=== PATIENT | female | born 1955 | race Caucasian/White ===

== ENCOUNTER → 2019-02-12 08:20 | Outpatient (BNVA) | payer MEDICAID, SELFPAY | PROVIDERS: Family Provider Family Medicine; PCP Family Medicine; Visit Provider Social Worker | DX: F33.2 Major depressive disorder, recurrent severe without psychotic features (principal); F43.12 Post-traumatic stress disorder, chronic; F41.1 Generalized anxiety disorder; F60.3 Borderline personality disorder; F90.0 Attention-deficit hyperactivity disorder, predominantly inattentive type | CPT/HCPCS: 90834 ==

== ENCOUNTER → 2019-02-21 07:48 | Outpatient (BNVA) | payer MEDICAID, SELFPAY | PROVIDERS: Family Provider Family Medicine; PCP Family Medicine; Visit Provider Nurse Practitioner Psychiatric/Mental Health | DX: F33.2 Major depressive disorder, recurrent severe without psychotic features (principal); F41.1 Generalized anxiety disorder; F43.12 Post-traumatic stress disorder, chronic; F50.81 Binge eating disorder; F60.3 Borderline personality disorder; F17.210 Nicotine dependence, cigarettes, uncomplicated | CPT/HCPCS: 99213 ==

== ENCOUNTER → 2019-02-26 07:44 | Outpatient (BNVA) | payer MEDICAID, SELFPAY | PROVIDERS: Family Provider Family Medicine; PCP Family Medicine; Visit Provider Social Worker | DX: F33.2 Major depressive disorder, recurrent severe without psychotic features (principal); F43.12 Post-traumatic stress disorder, chronic; F41.1 Generalized anxiety disorder; F60.3 Borderline personality disorder; F90.0 Attention-deficit hyperactivity disorder, predominantly inattentive type | CPT/HCPCS: 90834 ==

== ENCOUNTER → 2019-03-17 07:46 | Outpatient (BNVA) | payer MEDICAID, SELFPAY | PROVIDERS: Family Provider Family Medicine; PCP Family Medicine; Visit Provider Social Worker | DX: F33.2 Major depressive disorder, recurrent severe without psychotic features (principal); F43.12 Post-traumatic stress disorder, chronic; F41.1 Generalized anxiety disorder; F60.3 Borderline personality disorder; F90.0 Attention-deficit hyperactivity disorder, predominantly inattentive type | CPT/HCPCS: 90834 ==

== ENCOUNTER → 2019-04-14 08:04 | Outpatient (BNVA) | payer MEDICAID, SELFPAY | PROVIDERS: Family Provider Family Medicine; PCP Nurse Practitioner; Visit Provider Social Worker | DX: F43.12 Post-traumatic stress disorder, chronic (principal); F60.3 Borderline personality disorder; F33.2 Major depressive disorder, recurrent severe without psychotic features; F41.1 Generalized anxiety disorder; F90.0 Attention-deficit hyperactivity disorder, predominantly inattentive type | CPT/HCPCS: 90834 ==

== ENCOUNTER → 2019-04-16 12:23 | Outpatient (BNVA) | payer MEDICAID, SELFPAY | PROVIDERS: Family Provider Family Medicine; PCP Nurse Practitioner; Visit Provider Anesthesiology Pain Medicine | DX: M47.814 Spondylosis without myelopathy or radiculopathy, thoracic region (principal); F17.210 Nicotine dependence, cigarettes, uncomplicated | CPT/HCPCS: 64633; 64634; 77003; J1030; J2001 ==

== ENCOUNTER → 2019-05-05 10:20 | Outpatient (BNVA) | payer MEDICAID, SELFPAY | PROVIDERS: Family Provider Family Medicine; PCP Nurse Practitioner; Visit Provider Social Worker | DX: F43.12 Post-traumatic stress disorder, chronic (principal); F60.3 Borderline personality disorder; F41.1 Generalized anxiety disorder; F33.2 Major depressive disorder, recurrent severe without psychotic features; F90.0 Attention-deficit hyperactivity disorder, predominantly inattentive type | CPT/HCPCS: 90834 ==

== ENCOUNTER → 2019-05-19 09:10 | Outpatient (BNVA) | payer MEDICAID, SELFPAY | PROVIDERS: Family Provider Family Medicine; PCP Nurse Practitioner; Visit Provider Social Worker | DX: F43.12 Post-traumatic stress disorder, chronic (principal); F60.3 Borderline personality disorder; F41.1 Generalized anxiety disorder; F33.2 Major depressive disorder, recurrent severe without psychotic features | CPT/HCPCS: 90834 ==

== ENCOUNTER → 2019-05-21 09:30 | Outpatient (BNVA) | payer MEDICAID, SELFPAY | PROVIDERS: Family Provider Family Medicine; PCP Nurse Practitioner; Visit Provider Nurse Practitioner Psychiatric/Mental Health | DX: F33.2 Major depressive disorder, recurrent severe without psychotic features (principal); F41.1 Generalized anxiety disorder; F43.12 Post-traumatic stress disorder, chronic; F50.81 Binge eating disorder; F60.3 Borderline personality disorder; F17.210 Nicotine dependence, cigarettes, uncomplicated | CPT/HCPCS: 99214 ==

== ENCOUNTER 2019-05-22 12:40 | Outpatient (CLI) | payer MEDICAID, SELFPAY ==
--- NOTE | 2019-05-22 14:30 | XR_ITS ---
WS: [id number] LATERAL CERVICAL SPINE: 3 view. Lateral radiographs are performed in upright neutral, flexion and extension to the patient's toleranc e. HISTORY: Neck pain COMPARISON: 01/05/2017 Straightening of the normal cervical lordosis. Less than 2 mm anterolisthesis of C3. No instability. C4 retrolisthesis by 2.3 mm. No increase in size of the retrolisthesis during flexion or extension. A dvanced degenerative disc disease at C4-5 with mild at C5-6. No fracture. XR/XR cervical spine fl/ex [id number] IMPRESSION: 1. No cervical spine instability demonstrated. 2. C4 retrolisthesis by 2.3 mm. 3. Advanced degenerative disc disease at C4-5.
--- NOTE | 2019-05-22 14:30 | XR_ITS ---
WS: [id number] THORACIC SPINE TECHNIQUE: AP and lateral views are performed. HISTORY: Thoracic back pain COMPARISON: 07/11/2016 Mild LEFT convex curvature upper thoracic spine. Moderate increase in thoracic kyphosis. Disc space n arrowing and small endplate osteophytes at all levels. No fracture. Pedicles are all identified. XR/XR thoracic spine 3V* [id number] IMPRESSION: 1. Moderate spondylosis thoracic spine. Mild progression of spondylitic change s since 07/11/2016. 2. No fracture.
--- NOTE | 2019-05-22 14:59 | MR_ITS ---
WS: [id number] MRI CERVICAL SPINE NONCONTRAST TECHNIQUE: Sagittal T1, T2 and STIR imaging. Axial T2, gradient, and fiesta imaging. CLINICAL INFORMATION: Cervical disc disease COMPARISON: MRI December 05, 2016 FINDINGS: Straightening of the normal cervical lordosis. No high-grade central canal stenosis. Cord signal is n ormal. C2-C3: Asymmetric moderate to advanced left facet arthropathy. Moderate left foraminal narrowing. Spi nal canal and right foramen are patent. C3-C4: Tiny central disc osteophyte protrusion. Mild central canal stenosis. Moderate right foraminal narrowing. Moderate facet arthropathy. C4-C5: Disc osteophyte complex with endplate ridging. Mild central canal stenosis. Left eccentric ost eophytic ridging with Moderate bilateral bony foraminal narrowing left greater than right. Mild facet arthropathy. C5-C6: Disc osteophyte complex with endplate ridging. Mild central canal stenosis. Moderate right and mild left foraminal narrowing. Mild facet arthropathy. C6-C7: Disc osteophyte complex eccentric to the left. Mild/moderate left and no significant right for aminal narrowing. Spinal canal is patent. C7-T1: Normal. Visualized brain stem structures: Normal. Prevertebral soft tissues: Normal. MR/MR cervical spin wo con* [id number] IMPRESSION: 1. Straightening of the normal cervical lordosis. Cord signal is normal. 2. Mild central canal stenosis due to disc osteophyte complexes C3-C4, C4-C5 a nd C5-C6. 3. Multilevel moderate to severe bony foraminal narrowing worse at right C3-C4 , left C4-5, and right C5-C6. 4. Asymmetric advanced facet arthropathy left C2-3. 5. Overall no significant changes since 2016
--- NOTE | 2019-05-22 14:59 | MR_ITS ---
WS: [id number] MRI THORACIC SPINE WITHOUT CONTRAST TECHNIQUE: Sagittal T1, T2 and STIR imaging. Axial T2 imaging. Noncontrast imaging obtained. CLINICAL INFORMATION: Thoracic back pain COMPARISON: None. FINDINGS: Mild thoracic curve. Moderate thoracic kyphosis. No acute compression fractures. Cord signal is syed l. Moderate spondylitic changes throughout the thoracic spine. Mild chronic anterior wedging at T4-T7 with endplate degenerative changes. Incidental hemangioma T12. T1-2: Mild LEFT facet arthropathy. Spinal canal and foramen are patent. T2-3: Normal. T3-4: Normal. T4-5: Normal. T5-6: Normal. T6-7: Mild disc osteophyte complex. Spinal canal and foramen are patent. T7-8: Mild disc osteophyte ridging eccentric to the left. T8-9: Mild facet and ligamentum flavum arthropathy without stenosis. T9-10: Moderate facet arthropathy and ligament flavum hypertrophy. Spinal canal and foramen are paten t. T10-11: Moderate facet arthropathy without significant stenosis. T11-12: Mild facet arthropathy without significant spinal canal or foraminal narrowing.. MR/MR thoracic spin wo con* [id number] IMPRESSION: 1. Moderate thoracic kyphosis. No acute compression fractures. 2. Cord signal is normal. 3. No significant central canal stenosis. 4. Mild chronic anterior wedging at T4-T7 with endplate degenerative changes u nchanged. 5. Incidental hemangioma T12 vertebral body. 6. Moderate facet arthropathy lower thoracic spine. 7. No significant interval changes since 2017
== END 2019-05-22 12:41 | disposition home or self-care (01) ==
LOC: RADWPI 12:44
PROVIDERS: Family Provider Family Medicine; PCP Nurse Practitioner; Visit Provider Licensed Practical Nurse
DX: M54.6 Pain in thoracic spine (principal); M50.020 Cervical disc disorder with myelopathy, mid-cervical region, unspecified level; M40.294 Other kyphosis, thoracic region; D18.09 Hemangioma of other sites; M47.814 Spondylosis without myelopathy or radiculopathy, thoracic region; M48.02 Spinal stenosis, cervical region; M25.78 Osteophyte, vertebrae; M47.812 Spondylosis without myelopathy or radiculopathy, cervical region; M50.321 Other cervical disc degeneration at C4-C5 level
CPT/HCPCS: 72040; 72072; 72141; 72146

== ENCOUNTER → 2019-06-02 08:01 | Outpatient (BNVA) | payer MEDICAID, SELFPAY | PROVIDERS: Family Provider Family Medicine; PCP Nurse Practitioner; Visit Provider Social Worker | DX: F33.2 Major depressive disorder, recurrent severe without psychotic features (principal); F43.12 Post-traumatic stress disorder, chronic; F41.1 Generalized anxiety disorder; F60.3 Borderline personality disorder; F90.0 Attention-deficit hyperactivity disorder, predominantly inattentive type | CPT/HCPCS: 90834 ==

== ENCOUNTER → 2019-06-18 07:41 | Outpatient (BNVA) | payer MEDICAID, SELFPAY | PROVIDERS: Family Provider Family Medicine; PCP Nurse Practitioner; Visit Provider Nurse Practitioner Psychiatric/Mental Health | DX: F33.2 Major depressive disorder, recurrent severe without psychotic features (principal); F41.1 Generalized anxiety disorder; F43.12 Post-traumatic stress disorder, chronic; F50.81 Binge eating disorder; F60.3 Borderline personality disorder; F17.210 Nicotine dependence, cigarettes, uncomplicated | CPT/HCPCS: 99214 ==

== ENCOUNTER → 2019-07-16 08:15 | Outpatient (BNVA) | payer MEDICAID, SELFPAY | PROVIDERS: Family Provider Family Medicine; Visit Provider Nurse Practitioner Psychiatric/Mental Health | DX: F33.2 Major depressive disorder, recurrent severe without psychotic features (principal); F41.1 Generalized anxiety disorder; F43.12 Post-traumatic stress disorder, chronic; F50.81 Binge eating disorder; F60.3 Borderline personality disorder; F17.210 Nicotine dependence, cigarettes, uncomplicated | CPT/HCPCS: 99214 ==

== ENCOUNTER → 2019-07-21 07:53 | Outpatient (BNVA) | payer MEDICAID, SELFPAY | PROVIDERS: Family Provider Family Medicine; Visit Provider Social Worker | DX: F43.12 Post-traumatic stress disorder, chronic (principal); F33.2 Major depressive disorder, recurrent severe without psychotic features; F41.1 Generalized anxiety disorder; F60.3 Borderline personality disorder; F90.0 Attention-deficit hyperactivity disorder, predominantly inattentive type; F50.81 Binge eating disorder | CPT/HCPCS: 90834 ==

== ENCOUNTER → 2019-08-22 07:42 | Outpatient (BNVA) | payer MEDICAID, SELFPAY | PROVIDERS: Family Provider Family Medicine; Visit Provider Nurse Practitioner Psychiatric/Mental Health | DX: F33.2 Major depressive disorder, recurrent severe without psychotic features (principal); F41.1 Generalized anxiety disorder; F43.12 Post-traumatic stress disorder, chronic; F50.81 Binge eating disorder; F60.3 Borderline personality disorder; F17.210 Nicotine dependence, cigarettes, uncomplicated | CPT/HCPCS: 99214 ==

== ENCOUNTER → 2019-09-03 07:52 | Outpatient (BNVA) | payer MEDICAID, SELFPAY | PROVIDERS: Family Provider Family Medicine; Visit Provider Counselor Professional | DX: F33.2 Major depressive disorder, recurrent severe without psychotic features (principal); F41.1 Generalized anxiety disorder; F43.12 Post-traumatic stress disorder, chronic; F50.81 Binge eating disorder; F60.3 Borderline personality disorder | CPT/HCPCS: 90834 ==

== ENCOUNTER → 2019-09-11 09:32 | Outpatient (BNVA) | payer OTHER, SELFPAY | PROVIDERS: Family Provider Family Medicine; Visit Provider Dermatology | DX: F41.1 Generalized anxiety disorder (principal) | CPT/HCPCS: 80061; 83036 ==

== ENCOUNTER → 2019-09-12 08:56 | Outpatient (BNVA) | payer MEDICAID, SELFPAY | PROVIDERS: Family Provider Family Medicine; Visit Provider Anesthesiology | DX: M47.814 Spondylosis without myelopathy or radiculopathy, thoracic region (principal); M51.34 Other intervertebral disc degeneration, thoracic region; M43.12 Spondylolisthesis, cervical region; M50.020 Cervical disc disorder with myelopathy, mid-cervical region, unspecified level; M54.9 Dorsalgia, unspecified; F17.210 Nicotine dependence, cigarettes, uncomplicated; Z71.6 Tobacco abuse counseling | CPT/HCPCS: 99215 ==

== ENCOUNTER → 2019-09-23 08:11 | Outpatient (BNVA) | payer MEDICAID, SELFPAY ==
[2019-09-12 11:21] VITALS: BP 152/92; BMI 27.6
== END ==
PROVIDERS: Family Provider Family Medicine; Visit Provider Counselor Professional
DX: F33.2 Major depressive disorder, recurrent severe without psychotic features (principal); F41.1 Generalized anxiety disorder; F43.12 Post-traumatic stress disorder, chronic; F50.81 Binge eating disorder; F60.3 Borderline personality disorder; F17.210 Nicotine dependence, cigarettes, uncomplicated
CPT/HCPCS: 90832; 90834

== ENCOUNTER → 2019-10-03 08:15 | Outpatient (BNVA) | payer MEDICAID, SELFPAY ==
[2019-09-12 11:21] VITALS: BP 152/92; BMI 27.6
== END ==
PROVIDERS: Family Provider Family Medicine; Visit Provider Nurse Practitioner Psychiatric/Mental Health
DX: F33.2 Major depressive disorder, recurrent severe without psychotic features (principal); F41.1 Generalized anxiety disorder; F43.12 Post-traumatic stress disorder, chronic; F60.3 Borderline personality disorder; F17.210 Nicotine dependence, cigarettes, uncomplicated
CPT/HCPCS: 99214

== ENCOUNTER → 2019-11-12 07:41 | Outpatient (BNVA) | payer MEDICAID, SELFPAY ==
[2019-09-12 11:21] VITALS: BP 152/92; BMI 27.6
== END ==
PROVIDERS: Family Provider Family Medicine; Visit Provider Nurse Practitioner Psychiatric/Mental Health
DX: F60.3 Borderline personality disorder (principal); F33.2 Major depressive disorder, recurrent severe without psychotic features; F41.1 Generalized anxiety disorder; F43.12 Post-traumatic stress disorder, chronic; F17.210 Nicotine dependence, cigarettes, uncomplicated
CPT/HCPCS: 99213

== ENCOUNTER → 2019-12-17 07:35 | Outpatient (BNVA) | payer MEDICAID, SELFPAY ==
[2019-09-12 11:21] VITALS: BP 152/92; BMI 27.6
== END ==
PROVIDERS: Family Provider Family Medicine; Visit Provider Nurse Practitioner Psychiatric/Mental Health
DX: F60.3 Borderline personality disorder (principal); F33.2 Major depressive disorder, recurrent severe without psychotic features; F41.1 Generalized anxiety disorder; F17.210 Nicotine dependence, cigarettes, uncomplicated; F43.12 Post-traumatic stress disorder, chronic
CPT/HCPCS: 99213

== ENCOUNTER → 2020-01-23 07:50 | Outpatient (BNVA) | payer MEDICAID, SELFPAY ==
[2019-09-12 11:21] VITALS: BP 152/92; BMI 27.6
== END ==
PROVIDERS: Family Provider Family Medicine; Visit Provider Nurse Practitioner Psychiatric/Mental Health
DX: F60.3 Borderline personality disorder (principal); F33.2 Major depressive disorder, recurrent severe without psychotic features; F41.1 Generalized anxiety disorder; F17.210 Nicotine dependence, cigarettes, uncomplicated; F43.12 Post-traumatic stress disorder, chronic
CPT/HCPCS: 99214

== ENCOUNTER → 2020-02-23 08:11 | Outpatient (BNVA) | payer MEDICAID, SELFPAY ==
[2019-09-12 11:21] VITALS: BP 152/92; BMI 27.6
== END ==
PROVIDERS: Family Provider Family Medicine; Visit Provider Nurse Practitioner Psychiatric/Mental Health
DX: F60.3 Borderline personality disorder (principal); F33.2 Major depressive disorder, recurrent severe without psychotic features; F41.1 Generalized anxiety disorder; F17.210 Nicotine dependence, cigarettes, uncomplicated; F43.12 Post-traumatic stress disorder, chronic
CPT/HCPCS: 99213

== ENCOUNTER → 2020-05-26 07:08 | Outpatient (BNVA) | payer MEDICAID, SELFPAY ==
[2019-09-12 11:21] VITALS: BP 152/92; BMI 27.6
== END ==
PROVIDERS: Family Provider Family Medicine; Visit Provider Nurse Practitioner Psychiatric/Mental Health
DX: F60.3 Borderline personality disorder (principal); F33.2 Major depressive disorder, recurrent severe without psychotic features; F41.1 Generalized anxiety disorder; F17.210 Nicotine dependence, cigarettes, uncomplicated; F43.12 Post-traumatic stress disorder, chronic
CPT/HCPCS: 99214

== ENCOUNTER → 2020-06-23 07:25 | Outpatient (BNVA) | payer MEDICAID, SELFPAY ==
[2019-09-12 11:21] VITALS: BP 152/92; BMI 27.6
== END ==
PROVIDERS: Family Provider Family Medicine; Visit Provider Nurse Practitioner Psychiatric/Mental Health
DX: F60.3 Borderline personality disorder (principal); F33.2 Major depressive disorder, recurrent severe without psychotic features; F41.1 Generalized anxiety disorder; F17.210 Nicotine dependence, cigarettes, uncomplicated; F43.12 Post-traumatic stress disorder, chronic
CPT/HCPCS: 99214

== ENCOUNTER → 2020-07-26 07:23 | Outpatient (BNVA) | payer MEDICAID, SELFPAY ==
[2019-09-12 11:21] VITALS: BP 152/92; BMI 27.6
== END ==
PROVIDERS: Family Provider Family Medicine; Visit Provider Nurse Practitioner Psychiatric/Mental Health
DX: F60.3 Borderline personality disorder (principal); F17.210 Nicotine dependence, cigarettes, uncomplicated; F33.2 Major depressive disorder, recurrent severe without psychotic features; F41.1 Generalized anxiety disorder; F43.12 Post-traumatic stress disorder, chronic
CPT/HCPCS: 99214

== ENCOUNTER → 2020-09-02 10:24 | Outpatient (BNVA) | payer MEDICAID, SELFPAY ==
[2019-09-12 11:21] VITALS: BP 152/92; BMI 27.6
== END ==
PROVIDERS: Family Provider Family Medicine; Visit Provider Nurse Practitioner Psychiatric/Mental Health
DX: F60.3 Borderline personality disorder (principal); F33.2 Major depressive disorder, recurrent severe without psychotic features; F41.1 Generalized anxiety disorder; F17.210 Nicotine dependence, cigarettes, uncomplicated; F43.12 Post-traumatic stress disorder, chronic
CPT/HCPCS: 99214

== ENCOUNTER → 2020-10-14 10:05 | Outpatient (BNVA) | payer MEDICAID, SELFPAY ==
[2019-09-12 11:21] VITALS: BP 152/92; BMI 27.6
== END ==
PROVIDERS: Family Provider Family Medicine; Visit Provider Nurse Practitioner Psychiatric/Mental Health
DX: F60.3 Borderline personality disorder (principal); F33.2 Major depressive disorder, recurrent severe without psychotic features; F41.1 Generalized anxiety disorder; F17.210 Nicotine dependence, cigarettes, uncomplicated; F43.12 Post-traumatic stress disorder, chronic
CPT/HCPCS: 80061; 83036; 99214

== ENCOUNTER → 2020-11-25 09:49 | Outpatient (BNVA) | payer MEDICAID, SELFPAY ==
[2020-10-15 15:31] VITALS: BP 131/74; BMI 30.9
== END ==
PROVIDERS: Family Provider Family Medicine; Visit Provider Nurse Practitioner Psychiatric/Mental Health
DX: F60.3 Borderline personality disorder (principal); F33.2 Major depressive disorder, recurrent severe without psychotic features; F41.1 Generalized anxiety disorder; F17.210 Nicotine dependence, cigarettes, uncomplicated; F43.12 Post-traumatic stress disorder, chronic
CPT/HCPCS: 99214

== ENCOUNTER 2020-11-27 15:22 | Emergency (ER) | payer MEDICAID, SELFPAY ==
[2020-10-15 15:31] VITALS: BP 131/74; BMI 30.9
[2020-11-27 15:31] VITALS: BP 131/80; PULSE 73; RESP 18; TEMP 36.3; O2SAT 97; BMI 30.8
[2020-11-27 15:42] VITALS: BP 146/79; PULSE 72; RESP 19; TEMP 36.6; O2SAT 97
--- NOTE | 2020-11-27 16:04 | ED_ITS ---
HPI - General Adult General: Chief complaint: Skin/Abscess/Foreign Body Stated complaint: pt states bit by spider wk ago painful History of Present Illness: HPI narrative: CC: L anterior south abscess HPI: [65]yo patient w/ hx of psychiatric issues presenting to to the ED with L anterior south abscess 7 days. Pain, redness, and induration has since become swollen, inflamed, indurated, and painful and patient presents for further evaluation. []NO prior hx of abscess/cellulitis. Today, the patient denies fever/chill, nausea/vomiting, chest pain, SOB, palpitations, GI/ complaints. No hx of immunocompromised, DM, transplant, or asplenia. Onset: 7 days ago Duration: 7 days Location: L anterior south Severity: mild Review of Systems Narrative: Constitutional: No fever, no chills. HEENT: No vision changes CV: No chest pain, no palpitations PULM: No cough, no dyspnea. GI: No abdominal pain, no N/V/D. : No dysuria MSKEL: No muscle pain SKIN: +bump/4redness over the L anterior south NEURO: No headache, no focal weakness. HEME: No visible bruises PSYCH: Normal mood PFSH ED PFSH: Medical History (Updated 11/27/20 @ 16:03 by Karmen Hwang MD) Acquired spondylolisthesis of cervical vertebra Bilateral shoulder pain Borderline personality disorder Carpal tunnel syndrome, bilateral Cervical disc disorder with myelopathy of mid-cervical region Chronic post-traumatic stress disorder Encounter for long-term opiate analgesic use Generalized anxiety disorder Major depressive disorder, recurrent severe without psychotic features Nicotine dependence, cigarettes, uncomplicated Opioid contract exists Psychiatric care Psychiatric care Spondylolisthesis, cervical region Thoracic degenerative disc disease Urinary incontinence Surgical History H/O: hysterectomy History of tonsillectomy Hx of cholecystectomy Hx of tubal ligation Family History Unknown Adopted Social History (Updated 01/14/20 @ 13:18 by Mai Beaulieu RN) Smoking and tobacco status: current every day smoker cigarettes Packs smoked per day: 0.5 Years cigarettes smoked: 20 Second hand smoke exposure: No Alcohol intake: former Adopted: Yes Caregiver/support person: No Lives independently: Yes Household members: none Housing: House Marital status: Number of children: 2 Number of grandchildren: 4 Highest education level completed: GED or Equivalent service: No Current occupational status: unemployed Pets and animals: Yes Pets & animals: dog(s) Pets & animal details: [place] - female pug/dachshund mix History of recent travel: No Leisure activites: art, reading and other Leisure activities details: verónica Sexually active: No Current gender identity: Female Anju/Confucianist: [employer] of [place] Special anju needs: No Agree to transfusion: Yes Financial difficulty paying for basics: Somewhat Hard Female Reproductive History: Para: 2 Spontaneous abortions: No Physical Exam Narrative: EXAM NARRATIVE: Head: Atraumatic Eyes: PERRL, conjunctiva without injection ENT: Mucous membrane moist NECK: Supple without lymphadenopathy LUNGS: LCTAB CV: RRR ABDOMEN: Soft, nontender EXTREMITY: Normal ROM SKIN: []-sided indurated/fluctuant/erythematous lesion over the L anterior south NEURO: Awake and alert. No focal motor deficits. PSYCH: Normal mood and affect. Procedures Abscess I/D Site: lower extremity Side (if applicable): left Local Anesthetic: lidocaine 1% Amount of anesthesia used (mL): 8 Technique: incised with #11 blade Amount of fluid expressed (mL): 4 Irrigation: Yes Packing used?: plain Course Vital Signs: Vital signs: Vital Signs Temperature 97.9 F 11/27/20 15:42 Pulse Rate 72 11/27/20 15:42 Respiratory Rate 19 H 11/27/20 15:42 Blood Pressure 146/79 11/27/20 15:42 Pulse Oximetry 97 11/27/20 15:42 MDM - General Adult MDM Narrative: Medical decision making narrative: [65] yo patient presenting with exam most consistent with simple Abscess. No suspicion for overlying cellulitis. Given History, Exam, and Workup I have low suspicion for Cellulitis, Necrotizing Fasciitis, Pyomyositis, Sporotrichosis, Osteomyelitis or other emergent problems as a cause for this presentation. POCUS revealed abscess collection of the skin site. Interventions: Patient?s abscess has been incised with acceptable resolution. Please see the procedure note for information. Disposition: Discharge. Advised to follow up with a primary care physician in 48 hours. The patient given return precautions for any worsening symptoms, fever/nausea, vomiting or any new or concerning issues. Discharge Plan Discharge Patient Disposition: Home Clinical Impression: Abscess Condition: Stable Prescriptions: New cephalexin 500 mg capsule 500 mg PO BID 7 Days Qty: 14 RF: 0 No Action ibuprofen 200 mg tablet 200 mg PO DAILY PRNRF: 0 (DME) cane Device See Rx Instructions .ROUTE .MEDSUPPLY Qty: 1 RF: 0 clonazepam [Klonopin] 0.5 mg tablet 0.5 mg PO BID Qty: 60 RF: 3 sertraline [Zoloft] 100 mg tablet 100 mg PO .morning Qty: 7 RF: 0 sertraline [Zoloft] 50 mg tablet 50 mg PO .morning Qty: 7 RF: 0 bupropion HCl [Wellbutrin SR] 100 mg tablet sustained-release 12 hr 100 mg PO BID Qty: 60 RF: 1 Discharge Orders: Discharge ED (Routine); Ordered 11/27/20 Ordered By: Karmen Hwang Referrals: Pallavi Waldron DO [Primary Care Provider] - Discharge Diet: Advance as tolerated Discharge Activity: Resume usual activity Patient Instructions: Abscess (ED) Activity Restrictions/Additional Instructions: Please follow-up with your primary care provider for further evaluation of your abscess. Can start showering after 48 hours. Come back if there is any signs of worsening infection including redness, drainage, fever chills, or any new or concerning complaints. Coding Level of Care Code ED Tool Setter Apprentice for Carmelita Farias
[2020-11-27 16:12] VITALS: BP 137/74; PULSE 69; RESP 17; TEMP 36.6; O2SAT 95
== END 2020-11-27 16:17 | disposition home or self-care (01) ==
PROVIDERS: Emergency Provider Emergency Medicine; PCP Family Medicine
DX: L02.416 Cutaneous abscess of left lower limb (principal); F17.210 Nicotine dependence, cigarettes, uncomplicated
CPT/HCPCS: 10060; 99282

== ENCOUNTER → 2021-01-13 08:14 | Outpatient (BNVA) | payer MEDICAID, SELFPAY ==
[2020-10-15 15:31] VITALS: BP 131/74; BMI 30.9
== END ==
PROVIDERS: PCP Family Medicine; Visit Provider Nurse Practitioner Psychiatric/Mental Health
DX: F60.3 Borderline personality disorder (principal); F33.2 Major depressive disorder, recurrent severe without psychotic features; F41.1 Generalized anxiety disorder; F17.210 Nicotine dependence, cigarettes, uncomplicated; F43.12 Post-traumatic stress disorder, chronic
CPT/HCPCS: 99214

== ENCOUNTER → 2021-02-03 07:50 | Outpatient (BNVA) | payer MEDICAID, SELFPAY ==
[2020-10-15 15:31] VITALS: BP 131/74; BMI 30.9
== END ==
PROVIDERS: PCP Family Medicine; Visit Provider Social Worker
DX: F33.2 Major depressive disorder, recurrent severe without psychotic features (principal); F41.1 Generalized anxiety disorder; F43.12 Post-traumatic stress disorder, chronic; F60.3 Borderline personality disorder; F17.210 Nicotine dependence, cigarettes, uncomplicated
CPT/HCPCS: 90834

== ENCOUNTER → 2021-02-17 07:40 | Outpatient (BNVA) | payer MEDICAID, SELFPAY ==
[2020-10-15 15:31] VITALS: BP 131/74; BMI 30.9
== END ==
PROVIDERS: PCP Family Medicine; Visit Provider Nurse Practitioner Psychiatric/Mental Health
DX: F60.3 Borderline personality disorder (principal); F33.2 Major depressive disorder, recurrent severe without psychotic features; F17.210 Nicotine dependence, cigarettes, uncomplicated; F41.1 Generalized anxiety disorder; F43.12 Post-traumatic stress disorder, chronic
CPT/HCPCS: 99214

== ENCOUNTER → 2021-07-28 11:53 | Outpatient (BNVA) | payer MEDICAID, SELFPAY ==
[2020-10-15 15:31] VITALS: BP 131/74; BMI 30.9
== END ==
PROVIDERS: PCP Family Medicine; Visit Provider Nurse Practitioner
DX: F33.2 Major depressive disorder, recurrent severe without psychotic features (principal); F41.1 Generalized anxiety disorder; F43.12 Post-traumatic stress disorder, chronic; F60.3 Borderline personality disorder; F17.210 Nicotine dependence, cigarettes, uncomplicated
CPT/HCPCS: 99214

== ENCOUNTER → 2021-09-30 16:57 | Outpatient (BNVA) | payer MEDICAID, SELFPAY ==
[2020-10-15 15:31] VITALS: BP 131/74; BMI 30.9
== END ==
PROVIDERS: PCP Family Medicine; Visit Provider Emergency Medicine
DX: R39.9 Unspecified symptoms and signs involving the genitourinary system (principal); N30.00 Acute cystitis without hematuria
CPT/HCPCS: 81000; 87086

== ENCOUNTER 2021-10-24 14:26 | Emergency (ER) | payer MEDICAID, SELFPAY ==
[2020-10-15 15:31] VITALS: BP 131/74; BMI 30.9
[2021-10-24 14:53] VITALS: BP 159/94; PULSE 89; RESP 16; TEMP 36.4; O2SAT 94
[2021-10-24] MEDS: cephALEXin 500 mg Capsule PO (17:15)
--- NOTE | 2021-10-24 17:18 | PC.NURSE ---
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 ADP PAD AND ADHESIVE APPLIED TO COVER
--- NOTE | 2021-10-24 19:01 | ED_ITS ---
HPI - Animal Bite General: Chief Complaint: Animal Bite Stated Complaint: Spider bite on right buttock Time Seen by Provider: 10/24/21 15:08 History of Present Illness: 65 yo female patient presents to ER with spider bite to right buttocks. Pt denies any fever. Pt states this has been present for 3-4 days and has worsened. Pt denies any other complaints. Associated symptoms: Deny chills, diaphoresis, fever(s), headache(s) or syncope Review of Systems Const: Denies: fever(s), chills, body aches, change in appetite, change in weight, fatigue, malaise or diaphoresis Eyes: Denies: change in vision, blurry vision, blind spots, photophobia, eye discomfort, eye discharge, eye redness, floaters or seeing flashes ENMT: Denies: throat pain, uvular edema, enlarged tonsils, odynophagia, hoarseness, mouth pain, swelling of lips/tongue, oral sores, bleeding gums, dental pain, dry mouth, ear or mastoid pain, ear discharge, change in hearing, tinnitus, disequilibrium, nasal discharge, nasal congestion, post nasal drip or sinus pain Card: Denies: chest pain, palpitations, irregular heart rhythm, edema, swelling of feet/ankles, lightheadedness, syncope, pre-syncope, dyspnea on exertion, orthopnea, leg pain with exertion or acrocyanosis Resp: Denies: dyspnea, productive cough, non-productive cough, wheezing, stridor, pain on inspiration, change in phlegm color, hemoptysis or chest congestion GI: Denies: abdominal pain, nausea, vomiting, hematemesis, dysphagia, diarrhea, constipation, GI cramping, change in bowel habits or rectal pain : Denies: flank pain, difficulty voiding, dysuria, urinary frequency, urinary urgency, urinary hesitancy or hematuria Musc: Denies: neck pain, back pain, extremity pain, extremity swelling, joint pain, joint swelling, joint redness, joint warmth or deformity Skin/Breast: Denies: rash, pruritus, erythema, new lesions, changes in skin color or dry skin Neuro: Denies: headache(s), numbness in extremities, weakness in extremities, sensory changes, lack of coordination, difficulty walking, frequent falls, dizziness, vertigo, confusion, behavioral changes, Slurred speech present, difficulty communicating thoughts or seizure-like activity Psych: Denies: anxiety, depression, suicidal ideation or homicidal ideation Endo: Denies: polyuria, polydipsia, tired all the time, cold intolerance, excessive sweating, flushing, hot flashes or heat intolerance Gallo/Lymph: Denies: easy bruising, easy bleeding, petechiae, purpura, enlarged lymph nodes or tender lymph nodes All/Imm: Denies: urticaria, throat swelling, tongue swelling, facial swelling, acute wheezing or itchy eyes PFSH ED PFSH: Medical History Acquired spondylolisthesis of cervical vertebra Annual visit for general adult medical examination without abnormal findings Borderline personality disorder Carpal tunnel syndrome, bilateral Chronic post-traumatic stress disorder Encounter for long-term opiate analgesic use Generalized anxiety disorder Major depressive disorder, recurrent severe without psychotic features Nicotine dependence, cigarettes, uncomplicated Opioid contract exists Psychiatric care Thoracic degenerative disc disease Urinary incontinence Surgical History H/O: hysterectomy History of tonsillectomy Hx of cholecystectomy Hx of tubal ligation Spondylosis without myelopathy or radiculopathy, thoracic region Family History Unknown Adopted Social History Smoking and tobacco status: current every day smoker cigarettes Packs smoked per day: 0.5 Years cigarettes smoked: 21 Second hand smoke exposure: No Alcohol intake: former Adopted: Yes Caregiver/support person: No Lives independently: Yes Household members: none Housing: House Marital status: Number of children: 2 Number of grandchildren: 4 Highest education level completed: GED or Equivalent service: No Current occupational status: disabled Pets and animals: Yes Pets & animals: dog(s) Pets & animal details: [place] - female pug/dachshund mix History of recent travel: No Leisure activites: art, reading and other Leisure activities details: verónica Sexually active: No Current gender identity: Female Anju/Pentecostalism: Gnosticism of [place] Special anju needs: No Agree to transfusion: Yes Financial difficulty paying for basics: Somewhat Hard Female Reproductive History: Para: 2 Spontaneous abortions: No Physical Exam Const: COMMON NORMALS: no acute distress, patient oriented x3, healthy appearing, alert and well nourished GENERAL APPEARANCE: cooperative, comfortable, well kempt and well developed; not ill appearing ORIENTATION/CONSCIOUSNESS: Yes awake, Yes oriented to person, Yes oriented to place and Yes oriented to time HENMT: THROAT: no uvular edema Neck/C-Spine: COMMON NORMALS: full ROM, no lymphadenopathy, supple, no meningeal signs, no JVD and Thyroid normal GENERAL: Yes normal visual inspection and Yes trachea midline THYROID: Thyroid normal CERVICAL SPINE: Yes cervical ROM normal Lymph: LYMPHATIC: no lymphadenopathy noted and no lymphedema noted Resp: COMMON NORMALS: normal respiratory effort, No retractions, No use of accessory muscles and clear to auscultation bilaterally EFFORT & INSPECTION: Yes able to speak in complete sentences and Yes symmetric chest movement AUSCULTATION: clear to auscultation bilaterally Cardio: COMMON NORMALS: no JVD, regular rate and regular rhythm RATE: regular rate RHYTHM: regular rhythm GI: COMMON NORMALS: Normal to inspection, nondistended, normoactive bowel sounds present, Soft to palpation, non-tender, No hepatosplenomegaly present, no masses and no bruits INSPECTION: Yes normal to inspection AUSCULTATION: Yes normoactive bowel sounds PALPATION: Yes Soft to palpation and Yes No hepatosplenomegaly present PERCUSSION: normal to percussion RECTAL EXAM: deferred : COMMON NORMALS: Yes no CVA tenderness, Yes normal external appearance, Yes normal appearance of the vagina, Yes normal appearance of the cervix, Yes No adnexal tenderness and Yes no masses BLADDER/KIDNEY EXAM: Yes no CVA tenderness Back/Pelvis: COMMON NORMALS: no CVA tenderness, thoracic and lumbar spine normal to inspection, no thoracic nor lumbar tenderness and thoraco-lumbar ROM normal THORACIC SPINE/UPPER BACK: Yes normal to inspection LUMBAR SPINE/LOWER BACK: Yes normal to inspection Extremity: COMMON NORMALS: normal to inspection, full ROM and capillary refill normal GENERAL: Yes normal exam except as noted Neuro: COMMON NORMALS: patient oriented x3, CN's II-XII intact bilaterally, moves all extremities, no focal motor deficits, no sensory deficits noted and ga it normal SENSORIUM/ORIENTATION: Yes alert, Yes oriented to person, Yes oriented to place and Yes oriented to time MENINGEAL SIGNS: Yes no meningeal signs CRANIAL NERVES: Yes CN normal except as noted SPEECH: speech normal GAIT: Yes Normal gait present SENSORY EXAM: Yes extremities Psych: COMMON NORMALS: mental status grossly normal, Normal thought process present, cooperative, normal affect, speech normal, activity/motor behavior normal, denies hallucinations, denies homicidal ideation and denies suicidal ideation APPEARANCE: Yes grossly normal and Yes well kempt ATTITUDE: Yes calm ACTIVITY/MOTOR BEHAVIOR: Yes appropriate eye contact SPEECH: Yes normal speech THOUGHT PROCESS: Normal thought process present THOUGHT CONTENT: Yes Normal thought content present ATTENTION/CONCENTRATION: Yes attention grossly intact MEMORY/COGNITION: Yes memory grossly intact INSIGHT: Good insight present (Psych) JUDGEMENT: Good judgement present (Psych) Skin: COMMON NORMALS: no wounds, turgor normal, no jaundice, no petechiae and no mottling GENERAL SKIN EXAM: turgor normal Procedures Abscess I/D Site: other (right buttocks) Side (if applicable): right Local Anesthetic: lidocaine 1% Amount of anesthesia used (mL): 2 Technique: incised with #11 blade Amount of fluid expressed (mL): 10 Irrigation: Yes Packing used?: plain Complications: other (No complications) Course Vital Signs: Vital signs: Vital Signs Temperature 97.5 F L 10/24/21 14:53 Pulse Rate 89 10/24/21 14:53 Respiratory Rate 16 10/24/21 14:53 Blood Pressure 159/94 10/24/21 14:53 Pulse Oximetry 94 10/24/21 14:53 Oxygen Delivery Me thod 10/24/21 14:53 MDM - Animal Bite Medical Decision Making Patient is well appearing non toxic and in no acute distress. 65 yo female patient presents to ER with spider bite to right buttocks. Pt denies any fever. Pt states this has been present for 3-4 days and has worsened. Pt denie s any other complaints. Please see procedure note for details. Will start on antibiotics and have return in 48 hours for packing removal and wound recheck Discharge Plan Discharge Patient Disposition: Home Clinical Impression: Abscess Condition: Stable Prescriptions: New cephalexin 500 mg capsule 500 mg PO Q8H 7 Days Qty: 21 0RF No Action ibuprofen 200 mg tablet 200 mg PO DAILY PRN (DME) cane Device See Rx Instructions .ROUTE .MEDSUPPLY Qty: 1 0RF Rx Instructions: As directed clonazepam [Klonopin] 0.5 mg tablet 0.5 mg PO BID PRN (Reason: anxiety) Qty: 60 3RF Rx Instructions: Take one tablet twice per day as needed for anxiety bupropion HCl [Wellbutrin SR] 200 mg tablet sustained-release 12 hr 200 mg PO QAM Qty: 90 1RF Rx Instructions: Take one tablet every morning fluconazole [Diflucan] 150 mg tablet 150 mg PO Q3D Qty: 2 1RF phenazopyridine [Pyridium] 200 mg tablet 200 mg PO Q8H PRN (Reason: pain) Qty: 9 0RF Discharge Orders: Discharge ED (Routine); Ordered 10/24/21 Ordered By: Ayesha Gonzalez Referrals: Pallavi Waldron DO [Primary Care Provider] - Discharge Diet: Advance as tolerated Discharge Activity: Increase activity as tolerated Patient Instructions: Abscess (ED), Opioid Safety, Pain Management Activity Restrictions/Additional Instructions: Return to ER in 48 hours for packing removal and wound recheck Take medications as prescribed Coding Level of Care Code ED Office Manager Executive Assistant for Carmelita Farias
== END 2021-10-24 17:38 | disposition home or self-care (01) ==
PROVIDERS: Emergency Provider Registered Nurse; PCP Family Medicine
DX: L02.31 Cutaneous abscess of buttock (principal); F17.210 Nicotine dependence, cigarettes, uncomplicated
CPT/HCPCS: 10060; 99283

== ENCOUNTER 2021-12-22 09:46 | Outpatient (CLI) | payer MEDICARE, MEDICAID, SELFPAY ==
[2021-10-28 09:00] VITALS: BP 131/74; BMI 30.9
--- NOTE | 2021-12-22 09:55 | MM_ITS ---
WS: [id number] BILATERAL SCREENING DIGITAL TOMOSYNTHESIS MAMMOGRAM WITH CAD HISTORY: Annual exam COMPARISON: 10/09/2017, 04/14/2015 and 07/11/2013 Bilateral CC and MLO views with tomosynthesis and synthetic mammography submitted. Computer aided det ection analyzed. Breast composition: The breasts are heterogeneously dense, which may obscure small masses. No suspici ous masses, microcalcifications or architectural distortion. Stable appearance of the fibroglandular density and the benign calcifications. MM/[place] [id number] IMPRESSION: BI-RADS: 2-Benign FOLLOW UP: 1 Year Follow-up
== END 2021-12-22 09:47 | disposition home or self-care (01) ==
PROVIDERS: PCP Family Medicine; Visit Provider Family Medicine
DX: Z12.31 Encounter for screening mammogram for malignant neoplasm of breast (principal)
CPT/HCPCS: 77063; 77067

== ENCOUNTER 2022-06-02 07:59 | Outpatient (CLI) | payer OTHER, MEDICAID, SELFPAY ==
[2021-10-28 09:00] VITALS: BP 131/74; BMI 30.9
--- NOTE | 2022-06-02 08:19 | MR_ITS ---
WS: [id number] MRI RIGHT LOWER EXTREMITY without CONTRAST. COMPARISON: None Multiplanar, multisequence imaging is performed without contrast. History: Possible quadriceps strain. Femur pain. No injury. MRI performed of the RIGHT femur to include the knee. The RIGHT hip is not included. There is no frac ture or marrow edema. No marrow replacement and the cortex is intact. No signal abnormalities such as edema or increased T2 signal is noted within the quadriceps or hamstring muscles. No muscle atrophy or edema. No mass or displacement of the muscular fascia. No joint effusion at the knee. No subcutane ous abnormality. MR/MR lower leg RT wo con* [id number] IMPRESSION: Negative MRI RIGHT thigh. No quadriceps muscle strain or bone abnormality.
== END 2022-06-02 08:00 | disposition home or self-care (01) ==
LOC: RAD 08:05
PROVIDERS: PCP Family Medicine; Visit Provider Family Medicine
DX: S76.111A Strain of right quadriceps muscle, fascia and tendon, initial encounter (principal); X58.XXXA Exposure to other specified factors, initial encounter
CPT/HCPCS: 73718

== ENCOUNTER 2022-06-19 12:39 | Outpatient (CLI) | payer OTHER, MEDICAID, SELFPAY ==
[2021-10-28 09:00] VITALS: BP 131/74; BMI 30.9
--- NOTE | 2022-06-19 13:01 | MR_ITS ---
WS: [id number] MRI CERVICAL SPINE NONCONTRAST TECHNIQUE: Sagittal T1, T2 and STIR imaging. Axial T2, gradient, and fiesta imaging. CLINICAL INFORMATION: CERVICALGIA COMPARISON: MRI May 22, 2019 FINDINGS: Straightening of the normal cervical lordosis. Slight retrolisthesis C4 on C5 and C5 on C6. Cord sign al is normal. C2-C3: Moderate LEFT facet arthropathy. Mild LEFT bony foraminal narrowing. RIGHT foramen is patent. Spinal canal is patent. C3-C4: Disc osteophyte complex with endplate ridging. Mild RIGHT and no significant LEFT foraminal na rrowing. Moderate facet arthropathy. C4-C5: Disc osteophyte complex with endplate ridging. Mild central canal stenosis. Slight contact of the cervical cord. Moderate to severe bilateral bony foraminal narrowing. Moderate facet arthropathy. C5-C6: Disc osteophyte complex with endplate ridging. Mild central canal stenosis. Moderate to severe RIGHT and moderate LEFT bony foraminal narrowing. Moderate facet arthropathy. C6-C7: Mild LEFT and no significant RIGHT foraminal narrowing. Spinal canal is patent. C7-T1: Mild facet arthropathy. Spinal canal and foramen are patent Visualized brain stem structures: Normal. Prevertebral soft tissues: Normal. MR/MR cervical spin wo con* [id number] IMPRESSION: Spondylitic changes slightly progressed compared to 2019.Otherwise no significant interval changes. 1. Straightening of the normal cervical lordosis. Cord signal is normal. 2. Mild central canal stenosis due to disc osteophyte complexes C3-C4, C4-C5 a nd C5-C6 similar to previous. Slightly more disc desiccation at C4-C5 and C5-C6 . 3. Multilevel moderate to severe bony foraminal narrowing worse at bilateral C 4-C5 and right C5-C6 unchanged. 4. Moderate to advanced facet arthropathy LEFT C2-C3, bilateral C3-C4, and adebayo ateral C4-C5.
--- NOTE | 2022-06-19 13:02 | MR_ITS ---
WS: [id number] MRI THORACIC SPINE WITHOUT CONTRAST TECHNIQUE: Sagittal T1, T2 and STIR imaging. Axial T2 imaging. Noncontrast imaging obtained. CLINICAL INFORMATION: PAIN IN T SPINE COMPARISON: MRI 2020 FINDINGS: Mild thoracic curve. Mild thoracic kyphosis. No acute compression fractures. Disc space narrowing in the mid thoracic spine with mild chronic anterior wedging. Endplate degenerative changes. Tiny shallo w central protrusions mid thoracic spine without significant spinal canal narrowing. Moderate facet a rthropathy lower thoracic spine. Chronic anterior wedging at T4-T7. Adrenal glands are normal. Normal caliber thoracic aorta. Incidental hemangioma T12 vertebral body. MR/MR thoracic spin wo con* [id number] IMPRESSION: 1. Mild thoracic curve with mild thoracic kyphosis. 2. No acute compression fractures. 3. Cord signal is normal. No significant central canal stenosis.
== END 2022-06-19 12:40 | disposition home or self-care (01) ==
PROVIDERS: PCP Family Medicine; Visit Provider Family Medicine
DX: M54.6 Pain in thoracic spine (principal); M40.204 Unspecified kyphosis, thoracic region
CPT/HCPCS: 72141; 72146

== ENCOUNTER 2024-07-11 09:49 | Outpatient (CLI) | payer OTHER, MEDICAID, SELFPAY ==
[2024-05-02 09:04] VITALS: BP 131/74; BMI 30.9
--- NOTE | 2024-07-11 09:59 | MM_ITS ---
WS: [id number] BILATERAL SCREENING DIGITAL TOMOSYNTHESIS MAMMOGRAM WITH CAD HISTORY: SCREENING COMPARISON: 12/22/2021, 10/09/2017 Bilateral CC and MLO views with tomosynthesis and synthetic mammography submitted. Computer aided detection analyzed. Breast composition: The breasts are heterogeneously dense, which may obscure small masses. No suspicious masses, microcalcifications or architectural distortion. Benign calcifications in each breast. MM/MM scr tomosynthesis [id number] IMPRESSION: BI-RADS: 2 - Benign FOLLOW UP: 1 Year Follow-up
== END 2024-07-11 09:50 | disposition home or self-care (01) ==
PROVIDERS: PCP Family Medicine; Visit Provider Family Medicine
DX: Z12.31 Encounter for screening mammogram for malignant neoplasm of breast (principal); R92.333 Mammographic heterogeneous density, bilateral breasts; R92.1 Mammographic calcification found on diagnostic imaging of breast
CPT/HCPCS: 77063; 77067